=== PATIENT | female | born 1940 | race Caucasian/White ===

== ENCOUNTER → 2018-10-07 | Outpatient (CLI) | payer MEDICARE, OTHER | LOC: CARD 07:56 | PROVIDERS: ATTEND Family Medicine | DX: R00.1 Bradycardia, unspecified (principal) | CPT/HCPCS: 93225; 93226 ==

== ENCOUNTER → 2021-07-25 | Outpatient (CLI) | payer MEDICARE, OTHER ==
--- NOTE | 2021-07-25 10:56 | Diagnostic Imaging Report ---
Indication: Right hip pain. Time of Exam: 9:35 AM Single view of the pelvis shows normal femoral acetabular alignment. Femoral head and neck are intact. Rami are intact. No fractures are seen. Impression: No acute bony abnormality is detected. Dictated by: Dictated on workstation # [id number]
--- NOTE | 2021-07-25 10:56 | Diagnostic Imaging Report ---
Indication: Hip pain. Time of Exam: 9:37 AM 3 views of the lumbar spine show normal curvature and alignment. Vertebral body heights are well maintained. No acute compression fracture seen. There is severe multilevel lumbar spondylosis with significant disc space narrowing and marginal spurring at all levels. There is multilevel facet arthropathy. Abdominal aorta is heavily calcified. IMPRESSION: Severe lumbar spondylosis. No acute fracture is detected. Dictated by: Dictated on workstation # [id number]
--- NOTE | 2021-07-25 11:00 | Diagnostic Imaging Report ---
INDICATION: Right hip pain. Time of Exam: 9:36 AM Two views of the right hip show normal femoral acetabular alignment. Joint spaces are well maintained. Femoral head and neck are intact. No fractures are seen. IMPRESSION: No acute bony abnormality is detected. Dictated by: Dictated on workstation # [id number]
== END ==
LOC: RAD FS 09:19
PROVIDERS: ATTEND Nurse Practitioner
DX: M47.816 Spondylosis without myelopathy or radiculopathy, lumbar region (principal)
CPT/HCPCS: 72100; 72170; 73502

== ENCOUNTER 2021-11-10 09:32 | Emergency (ER) | payer MEDICARE, OTHER ==
[~2021-11-10] VITALS: Ht 175 cm; Wt 100.0 kg
[2021-11-10 10:11] VITALS: BP 134/69
--- NOTE | 2021-11-10 10:11 | ED General ---
General Chief Complaint: General Problems/Pain Stated Complaint: ELEV BP Source of Information: Patient Exam Limitations: No Limitations History of Present Illness Date Seen by Provider: Nov 10, 2021 Time Seen by Provider: 09:55 Initial Comments Patient is a 81-year-old female who presents with fatigue for the past 10 days after returning home from vacation. She has been evaluated by her primary care provider and had routine labs performed earlier this week. She states her blood pressure has been elevated at home but she is compliant with her medications. Blood pressure is 136/96 in the emergency department. She denies headache, dizziness, chest pain, palpitations, shortness of breath, leg pain swelling, ur inary frequency urgency or dysuria. No nausea vomiting sweats. No other acute symptoms or complaints. Patient currently resting and asymptomatic. Timing/Duration: 1/2 Hour Severity: Mild Modifying Factors: improves with Other Associated Systoms: Other Allergies and Home Medications Patient Home Medication List Home Medication List Reviewed: No Review of Systems Review of Systems Constitutional: see HPI Musculoskeletal: see HPI Past Lxaggxe-Seihsr-Toybai Hx Patient Social History Tobacco Use?: No Use of E-Cig and/or Vaping dev: No Substance use?: No Alcohol Use?: No Pt feels they are or have been: Unable to obtain Physical Exam Vital Signs Capillary Refill : Height, Weight, BMI Height: '" Weight: lbs. oz. 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 No work-up indicated at this time. Patient is comfortable with discharge home and follow-up with her PCP. Impression Primary Impression: Encounter for medical screening examination Disposition: HOME, SELF-CARE Condition: Stable Departure-Patient Inst. Decision time for Depature: 10:10 Referrals: JOSÉ MAYA APRN (PCP) Primary Care Physician [facility]JULES (Family) Primary Care Physician Add. Discharge Instructions: You were evaluated in the emergency department for high blood pressure and fatigue. Your blood pressure in the ER is in the normal range. Please go home and rest, follow-up with your PCP for review of labs and for further evaluation. Return to the ED if new or worsening symptoms. All discharge instructions reviewed with patient and/or family. Voiced understanding. JOHNATHON QUIÑONES DO Nov 10, 2021 10:11
== END 2021-11-10 10:20 | disposition home or self-care (01) ==
LOC: EDUNIT# 09:32 → ER FS 09:33
DX: Z00.00 Encounter for general adult medical examination without abnormal findings (principal)
CPT/HCPCS: 99281

== ENCOUNTER → 2022-12-02 | Outpatient (CLI) | payer MEDICARE, OTHER ==
[~2022-12-02] MED LIST: GADOTERATE 0.5 MMOL/ML (CLARISCAN) 20 ML VIAL IV ONE
--- NOTE | 2022-12-02 14:24 | Diagnostic Imaging Report ---
PROCEDURE: MRI left lower extremity with and without contrast. TECHNIQUE: Multiplanar, multisequence pre and post contrast-enhanced MRI of the left lower extremity was accomplished. INDICATION: Left thigh mass. COMPARISON: None available. FINDINGS: There is a well-circumscribed superficial mass located in a subcutaneous compartment of the proximal lateral thigh. This mass measures 7.8 x 7.4 x 6.9 cm and has mild mixed signal intensity on T1-weighted imaging. On T2-weighted imaging, it has hyperintensity with heterogeneous areas of hypointensity. Postcontrast imaging shows irregular thick mural enhancement within portions of the mass. A fat plane remains present between the deep aspect of the mass and the underlying anterior compartment of the muscle. Femur is normal in appearance. No hip effusion. IMPRESSION: The mass in the lateral aspect of the proximal left thigh is contained to the subcutaneous compartment. This may be a complex/infected epidermal inclusion cyst; however, given the thick irregular mural enhancement, sarcoma should remain in the differential. Excisional biopsy should be considered. Dictated by: Dictated on workstation # [id number]
== END ==
LOC: RAD 12:36
PROVIDERS: ATTEND Surgery
DX: R22.42 Localized swelling, mass and lump, left lower limb (principal)
CPT/HCPCS: 73720